=== PATIENT | male | born 1950 | race Caucasian/White ===

== ENCOUNTER 2022-06-02 11:06 | Observation (INO) | payer MEDICARE, SELFPAY ==
[2022-06-02] VITALS (48 sets, daily range): BP systolic 114–163; BP diastolic 68–100; PULSE 69–100; RESP 9–31; TEMP 36.5–37.2; O2SAT 93–100
--- NOTE | 2022-06-02 11:15 | DI.RAD_ITS ---
Exam(s) XR CHEST 2V PA LATERAL EXAM: XR CHEST 2V PA LATERAL CLINICAL HISTORY: R facial weakness TECHNIQUE: 2D digital imaging was performed of the chest. Two images were obtained. PA and lateral views were obtained. COMPARISON: No exams were available for comparison FINDINGS: MEDIASTINUM: Normal. HEART: Normal. PULMONARY VASCULATURE: Normal. LUNGS: Clear. PLEURAL SPACE: No pleural effusion or pneumothorax. Biapical pleural calcification. BONE:Within normal limits for the patient's age. There is a right convex thoracic scoliosis. OTHER FINDINGS:Normal. IMPRESSION: No acute pulmonary findings. DATA REPOSITORY: RADIATION DOSE DELIVERED:
--- NOTE | 2022-06-02 11:15 | DI.CT_ITS ---
Exam(s) CT BRAIN NECK CTA EXAM: CT BRAIN NECK CTA CLINICAL HISTORY: R sided weakness. TECHNIQUE: Imaging Protocol: Axial CT angiography was performed with multi-slice acquisition and mu lti-planar and/or 3D reconstructions. CONTRAST MATERIAL: Intravenous: Omnipaque 350 contrast volume:85 mL COMPARISON: No exams were available for comparison FINDINGS: CT Head W/O and W: Ventricles and Extra axial spaces: Normal in size and morphology for the patient's age. Hemorrhage: None. Cerebral parenchyma: There is no evidence of an acute territorial infarct. There are areas of decrea sed attenuation in the white matter most consistent with small vessel ischemic disease. Midline shift: None. Brainstem/Cerebellum: Normal. Calvarium: Normal. Visualized Paranasal sinuses/Mastoids: There is mild mucosal thickening in the paranasal sinuses. No air-fluid levels are present. Soft Tissues: Unremarkable. Enhancement: Unremarkable. CTA Neck W: Common Carotid: Right: No dissection, occlusion or significant stenosis. Left: No dissection, occlusion or significant stenosis. External Carotid: Right: No occlusion or significant stenosis. Left: No occlusion or significant stenosis. Internal Carotid: Right: No dissection, occlusion or significant stenosis. Left: No dissection, occlusion or significant stenosis. Vertebral Artery: Right: No dissection, occlusion or significant stenosis. Left: No dissection, occlusion or significant stenosis. Lung Apices: Normal. Bones: Within normal limits for the patient's age. Soft Tissues: Normal. Thyroid gland: Unremarkable. CTA Brain W: Internal Carotid Arteries: Mild atherosclerosis. No significant stenosis, aneurysm or occlusion. Anterior Cerebral Arteries: Right: No aneurysm, occlusion or significant stenosis. Left: No aneurysm, occlusion or significant stenosis. Middle Cerebral Arteries: Right: No aneurysm, occlusion or significant stenosis. Left: No aneurysm, occlusion or significant stenosis. Posterior Cerebral Arteries: Right: No aneurysm, occlusion or significant stenosis. Left: No aneurysm, occlusion or significant stenosis. Vertebral Arteries: Right: No aneurysm, occlusion or significant stenosis. Left: No aneurysm, occlusion or significant stenosis. Basilar Artery: No aneurysm, occlusion or significant stenosis. IMPRESSION: 1. No large vessel occlusion or significant stenosis on the CT angiography of the head. 2. No acute intracranial process. 3. No occlusion or significant stenosis on the CT angiography of the neck. RADIATION DOSE DELIVERED: 2,226.17mGy.cm Total DLP DATA REPOSITORY: All CT scans at this facility are submitted to the National Radiology Data Registry (NRDR) Dose Index Registry (DIR) with the [employer] ([employer]). RADIATION OPTIMIZATION: All CT scans at this facility use at least one of these dose optimization te chniques: automated exposure control; mA and/or kV adjustment per patient size (includes targeted exa ms where dose is matched to clinical indication); or iterative reconstruction.
[2022-06-02 11:25] LABS: Abs Immature Grans 0.01 10^3/uL (0.0-0.06); Absolute Lymphocyte Count 1.48 10^3/uL (1.2-3.4); Absolute Monocyte Count 0.53 10^3/uL (0.1-0.8); HGB 12.7 g/dL (13.5-17.5); Immature Grans % 0.3; Lymphocytes % 38.7; MCH 31.8 pg (27.0-33.0); MCHC 34.3 % (32.0-36.0); MCV 93 fL (80-95); Monocytes % 13.9; Neutrophils % 47.1; Platelet Count 119 10^3/uL (130-400); RDW 12.8 % (11.8-14.1); RDW-SD 43.1 fL; WBC 3.82 10^3/uL (4.4-10.8)
[2022-06-02 11:42] LABS: ALT 32 U/L (16-63); AST 24 U/L (15-37); Albumin 3.9 g/dL (3.4-5.0); Alkaline Phosphatase 70 U/L (46-116); Anion Gap 6.4 mmol/L (3-11); BUN 20 mg/dL (7-18); Bilirubin, Total 0.8 mg/dL (0.2-1.0); CO2 30.6 mmol/L (21.0-32.0); CREATININE 0.8 mg/dL (0.70-1.30); Calcium 8.6 mg/dL (8.5-10.1); Chloride 104 mmol/L (98-107); Estimated GFR 94.62 (mL/min/1.73m2); Glucose 91 mg/dL (74-106); Magnesium 1.9 mg/dL (1.8-2.4); Potassium 3.8 mmol/L (3.5-5.1); Sodium 141 mmol/L (136-145); Total Protein 7.5 g/dL (6.4-8.2); Troponin I < 50 ng/L (<or=60)
[2022-06-02 11:58] LABS: Source Nasal/Nares
[2022-06-02] MEDS: Normal Saline Flush 10 ML SYR IVP ×2 (11:58→19:30)
--- NOTE | 2022-06-02 12:01 | DI.VRAD_ITS ---
PROCEDURE INFORMATION: Exam: XR Chest Exam date and time: 06/02/2022 11:50 AM Age: 71 years old Clinical indication: Other: R facial weakness TECHNIQUE: Imaging protocol: Radiologic exam of the chest. Views: 2 views. COMPARISON: CT BRAIN NECK CTA 06/02/2022 11:35 AM FINDINGS: Limitations: Left posterior costophrenic sulcus excluded from image. Lungs: Lungs otherwise clear. Pleural spaces: Mild biapical pleural thickening and pleural calcifications. No pleural effusions. No pneumothorax. Heart/Mediastinum: Unremarkable. No cardiomegaly. Bones/joints: Moderate dextroscoliosis of the lower thoracic spine. Calcified granuloma projecting over the right upper lung zone. IMPRESSION: No evidence of active cardiopulmonary disease. Dictated and Authenticated by: Sarai Pineda MD. Ordering:ROBI Hardin MD
--- NOTE | 2022-06-02 12:04 | ED.GENADUL_ITS ---
Discharge Plan Disposition Patient Disposition: [facility] INPATIENT Condition: Stable Discharge Details Chief Complaint: CVA/TIA Clinical Impression: Weakness on right side of face Primary Care Provider: Unknown,Unknown ED Provider: Wilfred Amador Home Meds and New Rx's Prescriptions: No Action loperamide 2 MG capsule 2 mg PO PRN acetaminophen [Acetaminophen Extra Strength] 500 MG tablet 1,000 mg PO Q6H PRN PRN cholecalciferol (vitamin D3) [Vitamin D3] 1,000 UNIT capsule 1,000 unit PO BID Qty: 100 Rx Instructions: Vitamin D supplement ibuprofen 200 MG tablet 600 mg PO PRN Rx Instructions: Takes 4 tabs PRN cyclobenzaprine 10 MG tablet 5 mg PO TID PRNQty: 30 losartan 50 mg Tablet 50 mg PO BID atorvastatin 20 mg Tablet 20 mg PO DAILY famotidine 20 mg Tablet 20 mg PO QHS Neupogen 300 mcg/0.5 mL Syringe 300 mcg SUBCUT Medical Decision Making This is a 71-year-old gentleman with a past medical history of hyperlipidemia, hypertension, currently being evaluated at [facility] for potential autoimmune disease, presenting to the ER for right sided facial droop. He went to bed last night asymptomatic, upon awakening this morning noticed that his face is asymmetric and that he was having difficulty with pronunciation of his words. feels as though symptoms have improved some. Spares the forehead. Patient also reports right sided headache intermittent for the past week or so. While Draper's palsy is certainly on the differential, she has complained of a headache over the past week, believes symptoms are improving, more concerning for potential TIA-CVA. Plan is to initiate a cardiac work-up, CT head Noncon as well as CTA brain and neck. Last known normal was last night, outside the window for acute intervention. Laboratory values are unremarkable for any obvious emergent process. CT imaging unremarkable for significant vessel disease, stroke, etc. Discussed findings with patient and family. Full dose aspirin given. Given his age and comorbidities, ongoing symptoms, plan is to admit to our facility for observation and likely MRI tomorrow for further evaluation of the symptoms. Patient and family are comfortable with this plan. Case discussed with our hospitalist, Dr. Zamorano, who is agreeable to admission This documentation was generated using [employer] system, please disregard any oddities of phrase or misspellings. Medical Records Medical records reviewed: Yes I reviewed the patient's medical records. Imaging Data Radiologic Study: Attestation: I personally reviewed and interpreted this imaging study as follows: Imaging: X-Ray Radiologist's impression: PROCEDURE INFORMATION: Exam: XR Right Clavicle, Complete Exam date and time: 06/02/2022 10:57 AM Age: 34 years old Clinical indication: Other: Reinjury of recent FX and surgery; Prior surgery; Surgery date: <1 month TECHNIQUE: Imaging protocol: Radiologic exam of the Right clavicle. Complete exam. Views: Any number of views. COMPARISON: XA XR CLAVICLE RT LIMITED 1V 04/25/2022 12:51 PM FINDINGS: Bones/joints: Plate and screw fixation shaft of the right clavicle. No fracture line identified. Soft tissues: Normal. IMPRESSION: Plate and screw fixation shaft of the right clavicle Radiologic Study #2: Attestation: I personally reviewed and interpreted this imaging study as екатерина colungas: Imaging: CT Scan Radiologist's impression: PROCEDURE INFORMATION: Exam: CTA Head With Contrast, Arteriography Exam date and time: 06/02/2022 11:35 AM Age: 71 years old Clinical indication: Stroke-like symptoms; Other: Facial weakness, R sided weakness TECHNIQUE: Imaging protocol: Computed tomographic angiography of the head with contrast. Exam focused on the arteries. 3D rendering (Not supervised by radiologist): MIP and/or 3D reconstructed images were created by the technologist. Radiation optimization: All CT scans at this facility use at least one of these dose optimization techniques: automated exposure control; mA and/or kV adjustment per patient size (includes targeted exams where dose is matched to clinical indication); or iterative reconstruction. Contrast material: OMNIPAQUE 350; Contrast volume: 85 ml; Contrast route: INTRAVENOUS (IV); COMPARISON: No relevant prior studies available. FINDINGS: ANTERIOR CIRCULATION: Right internal carotid artery: Atherosclerosis without significant stenosis. No dissection. No aneurysm. Right middle cerebral artery: Normal. Right anterior cerebral artery: Normal. Left internal carotid artery: Atherosclerosis without significant stenosis. No dissection. No aneurysm. Left middle cerebral artery: Normal. Left anterior cerebral artery: Normal.POSTERIOR CIRCULATION: Right vertebral artery: Normal. Left vertebral artery: Normal. Basilar artery: Normal. Right posterior cerebral artery: Normal. Left posterior cerebral artery: Normal. Veins: Normal opacification of the central dural sinuses and major intracranial veins. Brain: No abnormal brain parenchyma or meningeal enhancement. Normal. Cerebral ventricles: Normal. Orbital cavities: Normal optic globes. Normal retrobulbar fat and other adjacent soft tissues. Normal optic nerves and extra-ocular muscles. Mastoid air cells: Clear. Paranasal sinuses: Clear. Bones/joints: Intact. No suspicious lesions. Soft tissues: Unremarkable. IMPRESSION: Mild carotid atherosclerosis. No large vessel stenosis or occlusion. PROCEDURE INFORMATION: Exam: CTA Neck With Contrast Exam date and time: 06/02/2022 11:35 AM Age: 71 years old Clinical indication: Stroke-like symptoms; Other: Facial weakness, R sided weakness TECHNIQUE: Imaging protocol: Computed tomographic angiography of the neck with contrast. 3D rendering (Not supervised by radiologist): MIP and/or 3D reconstructed images were created by the technologist. Radiation optimization: All CT scans at this [facility] use at least one of these dose optimization techniques: automated exposure control; mA and/or kV adjustment per patient size (includes targeted exams where dose is matched to clinical indication); or iterative reconstruction. Contrast material: OMNIPAQUE 350; Contrast volume: 85 ml; Contrast route: INTRAVENOUS (IV); COMPARISON: No relevant prior studies available. FINDINGS: Right common carotid artery: NormalRight external carotid artery: Normal. Left common carotid artery: Normal. Left internal carotid artery: Normal. Left external carotid artery: Normal. Right vertebral artery: Normal. Left vertebral artery: Normal. Other arteries: Normal. Lymph nodes: No enlarged or otherwise suspicious lymph nodes. Soft tissues: Unremarkable. Bones/joints: No fracture or suspicious lesion. Spine degenerative changes without significant appearing central stenosis. Lungs: Clear. IMPRESSION: Normal neck vessels. REFERENCES: NASCET CRITERIA. The degree of stenosis in the cervical segment of the internal carotid artery is based on NASCET criteria. Normal is no stenosis. Mild is less than 50% stenosis. Moderate is 50- 69% stenosis. Severe is 70% to 99% stenosis. Total occlusion is no detectable patent lumen. Radiologic Study #3: Attestation: I personally reviewed and interpreted this imaging study as follows: Imaging: CT Scan Radiologist's impression: PROCEDURE INFORMATION: Exam: CT Head Without Contrast Exam date and time: 06/02/2022 11:35 AM Age: 71 years old Clinical indication: Stroke-like symptoms; Other: Facial weakness, R sided weakness TECHNIQUE: Imaging protocol: Computed tomography of the head without contrast. Radiation optimization: All CT scans at this facility use at least one of these dose optimization techniques: automated exposure control; mA and/or kV adjustment per patient size (includes targeted exams where dose is matched to clinical indication); or iterative reconstruction. Other technique: STROKE PROTOCOL was implemented. COMPARISON: No relevant prior studies available. FINDINGS: Brain: No mass, intracranial hemorrhage or brain edema. Age appropriate brain volume. No focal encephalomalacia or transcortical defect. No white matter hypodensity. Normal cerebellum and brainstem. Unremarkable sella and pituitary. Cerebral ventricles: Appropriate size with respect to brain volume. Paranasal sinuses: Clear. Mastoid air cells: Clear. Bones/joints: No fracture or suspicious lesion. Soft tissues: Unremarkable. IMPRESSION: No acute intracranial abnormality. Normal brain. ASSESSMENT: ASPECTS ([place] Stroke Program Early CT Score) is 10. Lab Data Lab results reviewed: Yes I reviewed the patient's lab results. Labs: Laboratory Tests Range/Units 06/02/22 06/02/22 06/02/22 11:15 11:15 11:54 WBC (4.4-10.8) 10^3/uL 3.82 L RBC (4.36-5.78) 10^6/uL 4.00 L Hgb (13.5-17.5) g/dL 12.7 L Hct (40.0-50.0) % 37.0 L MCV (80-95) fL 93 MCH (27.0-33.0) pg 31.8 MCHC (32.0-36.0) % 34.3 RDW (11.8-14.1) % 12.8 Plt Count (130-400) 10^3/uL 119 L MPV (8.0-11.0) fL 9.0 Immature Gran % 0.3 Neutrophils % 47.1 Lymphocytes % 38.7 Monocytes % 13.9 Eosinophils % 0.0 Basophils % 0.0 Nucleated RBC % (0.0-0.3) % 0.0 Absolute Neutrophils (1.2-6.7) 10^3/uL 1.80 Absolute Lymphocytes (1.2-3.4) 10^3/uL 1.48 Absolute Monocytes (0.1-0.8) 10^3/uL 0.53 Absolute Eosinophils (0.0-0.7) 10^3/uL 0.00 Absolute Basophils (0.0-0.2) 10^3/uL 0.00 Sodium (136-145) mmol/L 141 Potassium (3.5-5.1) mmol/L 3.8 Chloride (98-107) mmol/L 104 Carbon Dioxide (21.0-32.0) mmol/L 30.6 Anion Gap (3-11) mmol/L 6.4 BUN (7-18) mg/dL 20 H Creatinine (0.70-1.30) mg/dL 0.8 Est GFR (CKD-EPI 2020) (mL/min/1.73m2) 94.62 Glucose (74-106) mg/dL 91 Calcium (8.5-10.1) mg/dL 8.6 Magnesium (1.8-2.4) mg/dL 1.9 Total Bilirubin (0.2-1.0) mg/dL 0.8 AST (15-37) U/L 24 ALT (16-63) U/L 32 Alkaline Phosphatase (46-116) U/L 70 Troponin I (<or=60) ng/L < 50 Total Protein (6.4-8.2) g/dL 7.5 Albumin (3.4-5.0) g/dL 3.9 Urine Color (Yellow) Urine Clarity (Clear) Urine pH (5-8) Ur Specific [place] (1.005-1.025) Urine Protein (Negative) mg/dL Urine Ketones (Negative) mg/dL Urine Blood (Negative) Urine Nitrite (Negative) Urine Bilirubin (Negative) Urine Urobilinogen (Up TO 0.2) EU/dL Ur Leukocyte Esterase (Negative) Urine Glucose (Negative) mg/dL COVID-19 Source Nasal/Nares SARS-CoV-2 (PCR) (Negative) Negative Range/Units 06/02/22 12:50 WBC (4.4-10.8) 10^3/uL RBC (4.36-5.78) 10^6/uL Hgb (13.5-17.5) g/dL Hct (40.0-50.0) % MCV (80-95) fL MCH (27.0-33.0) pg MCHC (32.0-36.0) % RDW (11.8-14.1) % Plt Count (130-400) 10^3/uL MPV (8.0-11.0) fL Immature Gran % Neutrophils % Lymphocytes % Monocytes % Eosinophils % Basophils % Nucleated RBC % (0.0-0.3) % Absolute Neutrophils (1.2-6.7) 10^3/uL Absolute Lymphocytes (1.2-3.4) 10^3/uL Absolute Monocytes (0.1-0.8) 10^3/uL Absolute Eosinophils (0.0-0.7) 10^3/uL Absolute Basophils (0.0-0.2) 10^3/uL Sodium (136-145) mmol/L Potassium (3.5-5.1) mmol/L Chloride (98-107) mmol/L Carbon Dioxide (21.0-32.0) mmol/L Anion Gap (3-11) mmol/L BUN (7-18) mg/dL Creatinine (0.70-1.30) mg/dL Est GFR (CKD-EPI 2020) (mL/min/1.73m2) Glucose (74-106) mg/dL Calcium (8.5-10.1) mg/dL Magnesium (1.8-2.4) mg/dL Total Bilirubin (0.2-1.0) mg/dL AST (15-37) U/L ALT (16-63) U/L Alkaline Phosphatase (46-116) U/L Troponin I (<or=60) ng/L Total Protein (6.4-8.2) g/dL Albumin (3.4-5.0) g/dL Urine Color (Yellow) Yellow Urine Clarity (Clear) Clear Urine pH (5-8) 6.5 Ur Specific [place] (1.005-1.025) 1.010 Urine Protein (Negative) mg/dL Negative Urine Ketones (Negative) mg/dL Negative Urine Blood (Negative) Negative Urine Nitrite (Negative) Negative Urine Bilirubin (Negative) Negative Urine Urobilinogen (Up TO 0.2) EU/dL 0.2 Ur Leukocyte Esterase (Negative) Negative Urine Glucose (Negative) mg/dL Negative COVID-19 Source SARS-CoV-2 (PCR) (Negative) ECG Data Attestation: I personally reviewed and interpreted this ECG (s) as follows: Interpretation: Sinus rhythm, ventricular rate 73, no STEMI. HPI General Mode of arrival: ambulatory . Date/Time Provider Initiated Documentation: 06/02/22 11:09 . Limitations to Documentation: no limitations . Information obtained by: patient and family . HPI Narrative: This is a 71-year-old gentleman with a past medical history of hypertension, hyperlipidemia, GERD, currently being worked up for potential autoimmune disorder, presenting for right sided facial weakness specifically around his mouth and slightly different speech pattern. He went to bed last night asymptomatic and his noticed the symptoms around 9 AM. She does believe that his symptoms are slightly improved when compared to her noticing them at 9 AM. Last known normal time would have been last night. Patient reports being under a great deal of stress over the past couple of months, has had mild right side intermittent headaches, no headache now. Denies recent illness or trauma. Patient reports a mild tremor which she believes have been getting worse over the past couple of months, it may be slightly more noticeable on the right side. Related Data Home Medications Medication Instructions Recorded Confirmed acetaminophen 500 mg tablet 1,000 mg PO Q6H PRN PRN 01/05/13 (Acetaminophen Extra Strength) loperamide 2 mg capsule 2 mg PO PRN 01/05/13 cholecalciferol (vitamin D3) 25 1,000 unit PO BID #100 tab-caps 06/07/14 mcg (1,000 unit) capsule (Vitamin D3) cyclobenzaprine 10 mg tablet 5 mg PO TID PRN #30 tab-caps 09/29/14 ibuprofen 200 mg tablet 600 mg PO PRN 09/29/14 atorvastatin 20 mg tablet 20 mg PO DAILY 06/02/22 06/02/22 famotidine 20 mg tablet 20 mg PO QHS 06/02/22 06/02/22 filgrastim 300 mcg/0.5 mL 300 mcg subcut 06/02/22 injection syringe (Neupogen) losartan 50 mg tablet 50 mg PO BID 06/02/22 06/02/22 Allergies Allergy/AdvReac Type Severity Reaction Status Date / Time No Known Allergies Allergy Unverified 06/02/22 11:15 General Stated Complaint: CVA/TIA DEEPALI: 2 Review of Systems Constitutional Constitutional: Denies fatigue, Denies fever(s), Denies headache(s) and Reports weakness Eyes Eyes: Denies change in vision ENT Ears, Nose, Mouth, and Throat: Denies headache(s) and Denies neck pain Cardiovascular Cardiovascular: Denies chest pain and Denies dyspnea Respiratory Respiratory: Denies dyspnea Gastrointestinal Gastrointestinal: Denies abdominal pain, Denies nausea and Denies vomiting Musculoskeletal Musculoskeletal: Denies back pain, Denies neck pain, Denies numbness and Denies tingling Integumentary/Breasts Skin/Breast: Denies erythema Neurologic Neurologic: Denies headache(s), Denies numbness, Denies tingling and Reports weakness Psychiatric Psychiatric: Reports other (Increased stress) Endocrine Endocrine: Denies fatigue Hematologic/Lymphatic Hematologic/Lymphatic: Denies easy bleeding and Denies easy bruising PFSH All Active Problems (Updated 06/02/22 @ 15:18 by SILVANA May) Weakness on right side of face (Acute) Surgical History Repair of inguinal hernia (~1983) left, done in [place] Tonsillectomy and adenoidectomy (~1955) Family History Mother , cerebral aneurysm at age 67. Cerebral aneurysm Father , renal fairlure at age 101. Renal failure Sister , colon ca at age 59. Diabetes Obesity Sister No problems noted. Sister No problems noted. Brother No problems noted. Other Colon cancer Social History Smoking/Tobacco Use Status: Never Smoking risk assessment performed?: Yes Alcohol Intake: current Alcohol Intake frequency: a few times a month Drug use: Occasionally Substance use type: marijuana Do you feel safe at home: Yes Do you feel safe in your relationship?: Yes Exam Const General: cooperative, healthy appearing, comfortable and no acute distress Orientation: alert, awake and oriented x3 Other: Body wide baseline tremor noted, I do question if is slightly worse in the right arm HENMT Head: normal to inspection, normocephalic and atraumatic General nose exam: external nose normal Face and sinus: other (Subtle droop-weakness right side of the mouth) Mouth: moist mucous membranes Throat: posterior oropharynx normal Eyes General: appearance normal, both eyes and all related structures Conjunctivae: conjunctivae normal Neck Neck: normal visual inspection, full ROM, trachea midline, supple and nontender Resp Effort & Inspection: normal respiratory effort and able to speak in complete sentences Auscultation: clear to auscultation bilaterally Cardio Rate: regular rate Rhythm: regular rhythm GI Palpation: soft, not firm, no guarding and nontender Back/Spine/Pelvis Back: No back tenderness Skin General skin exam: no rashes or lesions noted Neuro General: patient alert, patient awake, patient oriented x3, moves all extremities and no focal motor deficits Cognition: normal cognition Speech: speech normal Gait: normal gait Motor: muscle tone normal throughout (In extremities, face as above) and no pronator drift Sensory Exam: no sensory deficits noted Coordination: [id number] test normal and Does not sway with eyes open Extrem General: normal to inspection, full ROM and capillary refill normal Psych Appearance: grossly normal Mental Status: mental status grossly normal Course Vital Signs Vital signs: Vital Signs Temperature 36.5 C 06/02/22 11:10 Pulse 97 H 06/02/22 11:10 Respiratory Rate 20 06/02/22 11:10 Blood Pressure 137/82 06/02/22 11:10 Pulse Oximetry 98 06/02/22 11:10 Temperature 36.5 C 06/02/22 11:10 Temperature Source Temporal Artery Scan 06/02/22 11:10 Pulse 78 06/02/22 12:01 Pulse 83 06/02/22 12:01 Respiratory Rate 15 06/02/22 11:13 Respiratory Effort 06/02/22 11:28 Respiratory Depth Normal 06/02/22 11:28 Respiratory Pattern Normal 06/02/22 11:28 Blood Pressure 127/80 06/02/22 12:01 Blood Pressure Mean 92 06/02/22 12:01 Blood Pressure Position Sitting 06/02/22 11:10 Pulse Oximetry 96 06/02/22 12:01 Oxygen Delivery Method Room Air 06/02/22 11:10 Oxygen Flow Rate 0 06/02/22 11:10 Pain Level 2 06/02/22 11:10 Lab/Test Results Lab/Test Results: Laboratory Tests Range/Units 06/02/22 06/02/22 06/02/22 11:15 11:15 11:54 WBC (4.4-10.8) 10^3/uL 3.82 L RBC (4.36-5.78) 10^6/uL 4.00 L Hgb (13.5-17.5) g/dL 12.7 L Hct (40.0-50.0) % 37.0 L MCV (80-95) fL 93 MCH (27.0-33.0) pg 31.8 MCHC (32.0-36.0) % 34.3 RDW (11.8-14.1) % 12.8 Plt Count (130-400) 10^3/uL 119 L MPV (8.0-11.0) fL 9.0 Immature Gran % 0.3 Neutrophils % 47.1 Lymphocytes % 38.7 Monocytes % 13.9 Eosinophils % 0.0 Basophils % 0.0 Nucleated RBC % (0.0-0.3) % 0.0 Absolute Neutrophils (1.2-6.7) 10^3/uL 1.80 Absolute Lymphocytes (1.2-3.4) 10^3/uL 1.48 Absolute Monocytes (0.1-0.8) 10^3/uL 0.53 Absolute Eosinophils (0.0-0.7) 10^3/uL 0.00 Absolute Basophils (0.0-0.2) 10^3/uL 0.00 Sodium (136-145) mmol/L 141 Potassium (3.5-5.1) mmol/L 3.8 Chloride (98-107) mmol/L 104 Carbon Dioxide (21.0-32.0) mmol/L 30.6 Anion Gap (3-11) mmol/L 6.4 BUN (7-18) mg/dL 20 H Creatinine (0.70-1.30) mg/dL 0.8 Est GFR (CKD-EPI 2020) (mL/min/1.73m2) 94.62 Glucose (74-106) mg/dL 91 Calcium (8.5-10.1) mg/dL 8.6 Magnesium (1.8-2.4) mg/dL 1.9 Total Bilirubin (0.2-1.0) mg/dL 0.8 AST (15-37) U/L 24 ALT (16-63) U/L 32 Alkaline Phosphatase (46-116) U/L 70 Troponin I (<or=60) ng/L < 50 Total Protein (6.4-8.2) g/dL 7.5 Albumin (3.4-5.0) g/dL 3.9 COVID-19 Source Nasal/Nares PAWSS Have you Been Recently Intoxicated or Drunk Within the Last 30 days?: No Have you Ever Experienced Previous Episodes of Alcohol Withdrawal?: No Have you ever Experienced Withdrawal Seizures?: No Have you ever Experienced Delirium Tremens(DT)s?: No Have you ever undergone Alcohol Rehabilitation Treatment (i.e, inpt ot outpatient treatment programs)?: No Have you ever Experienced Blackouts?: No Have you ever Combined Alcohol with other Downers within the last 90 days?: No Have you ever Combined Alcohol with any other Substance of Abuse during the last 90 days?: No Positive Blood Alcohol level on Presentation? [PCS.BAL]: No Result: 0
--- NOTE | 2022-06-02 12:08 | DI.VRAD_ITS ---
PROCEDURE INFORMATION: Exam: CT Head Without Contrast Exam date and time: 06/02/2022 11:35 AM Age: 71 years old Clinical indication: Stroke-like symptoms; Other: Facial weakness, R sided weakness TECHNIQUE: Imaging protocol: Computed tomography of the head without contrast. Radiation optimization: All CT scans at this facility use at least one of these dose optimization techniques: automated exposure control; mA and/or kV adjustment per patient size (includes targeted exams where dose is matched to clinical indication); or iterative reconstruction. Other technique: STROKE PROTOCOL was implemented. COMPARISON: No relevant prior studies available. FINDINGS: Brain: No mass, intracranial hemorrhage or brain edema. Age appropriate brain volume. No focal encephalomalacia or transcortical defect. No white matter hypodensity. Normal cerebellum and brainstem. Unremarkable sella and pituitary. Cerebral ventricles: Appropriate size with respect to brain volume. Paranasal sinuses: Clear. Mastoid air cells: Clear. Bones/joints: No fracture or suspicious lesion. Soft tissues: Unremarkable. IMPRESSION: No acute intracranial abnormality. Normal brain. ASSESSMENT: ASPECTS ([place] Stroke Program Early CT Score) is 10. Dictated and Authenticated by: Howard Serrano MD. Ordering:ROBI Hardin MD
[2022-06-02 12:38] LABS: COVID-19 PCR Negative (Negative)
[2022-06-02] MEDS: Aspirin 325 MG TAB PO (12:57)
[2022-06-02 13:00] LABS: Bilirubin Negative (Negative); Blood Negative (Negative); Clarity Clear (Clear); Glucose Negative (Negative); Ketones Negative (Negative); Leukocyte Esterase Negative (Negative); Nitrite Negative (Negative); Urobilinogen 0.2 EU/dL (Up TO 0.2); pH 6.5 (5-8)
--- NOTE | 2022-06-02 13:00 | RT.EKG_ITS ---
APPROVED REPORT Exam: Resting ECG Reason for Exam: R facial weakness Patient Location: E HR:73 bpm ECG Measurements Heart Rate 73 AXIS NM 142 P 133 QRSd 103 QRS 96 QT 432 T 78 QTc 477 Conclusion Right and left arm electrode reversal, interpretation assumes no reversal Sinus rhythm...normal P axis, V-rate 60- 99 Right axis deviation...QRS axis ( 91,269) sinus rhythm, normal axis, normal intervals, non ischemic
[2022-06-02 14:33] LABS: Troponin I < 50 ng/L (<or=60)
--- OUTSIDE RECORDS SUMMARY | 2022-06-02 17:15 | XMS_ITS | CCD ---
:1950 Author Care Team Providers Name Role Phone RAJ VILLATORO Attending Physician Unavailable RAJ VILLATORO Rounding (Secondary) Physician Unavailab le Vital Signs Unknown or Not Available. Allergies Allergy Code Allergy Type Reaction Status FLU VACCINE 0 Drug allergy Anaphylaxis Active Procedures Unknown or Not Available. History of Immunizations Unknown or Not Available. Problems Unknown or Not Available. Results Unknown or Not Available. Active Medications Unknown or Not Available. Medications Administered During Visit Unknown or Not Available. Encounters Encounter Diagnosis Diagnosis Code Start Date Incomplete rotator cuff tear or rupture of left shoulder, [id number] 10/16/2021 not specified as traumatic Social History Smoking Status Code Start Date End Date Never smoker [id number] Patient Decision Aids Unknown or Not Available. Discharge Instructions You were admitted to [facility] on 10/16/2021 14:05 with a principal diagnosis of Incomplete rotator cuff tear or ruptu re of left shoulder, not specified as traumatic You were discharged from [facility] on 10/16/2021 00:00 Should you have any questions prior to d ischarge, please contact a member of your healthcare team. If you have left the ho spital and have any questions, please contact your primary care physician. Chief Complaint and Reason For Visit Unknown or Not Available. Function Status Unknown or Not Available. Plan of Care Unknown or Not Available. Referral/Transition of Care Unknown or Not Available.
--- OUTSIDE RECORDS SUMMARY | 2022-06-02 17:16 | XMS_ITS | Continuity of Care Document ---
:1950 Author Organization [facility] Address [address] [place] [address] Phone Support Name Relationship Address Phone NAYA KAPLAN Spouse Unavailable Shilpa Funez Primary Care Provider [facility] [phone] [place] [address] Blu Wilson Attending Provider [facility] [place] [address] Chief Complaint and Reason for Visit Chief Complaint New Patient Allergies, Adverse Reactions, Alerts No known allergies Social History Smoking Status Unknown if ever smoked Additional Data Assigned Sex Male Medications Medication Status Dose Units Route Directions Qty Days Start End Ins tructions Date Date Cholecalciferol Active 10 MCG PO DAILY February (Vitamin D3) 2020 8:34am Loratadine Active 10 MG PO DAILY March 01, 2021 8:35am Vitamins Active 1 CAP PO TWICE A DAY February A,C,W-Pjir-Uxavu (Icaps Areds) 2020 14,:35am mmcq-rh-ggsd capsule Metronidazole Active 1 APPLIC TOP DAILY March 01, 2021 8:35am Acyclovir Active 200 MG PO THREE TIMES Loni A DAY 2020 8:36am Cyclobenzaprine Active 25 MG PO THREE TIMES Loni A DAY 2020 8:37am Acetaminophen Active 325 MG PO ONCE February (Tylenol) 325 mg 2020 8:37am Ibuprofen Active 200 MG PO Q6H March 01, 2021 8:38am Vital Signs Vital Reading Result Reference Range Collection Date/ Time Height 72 [in_i] March 01, 2021 8:23am Weight 79.37 kg March 01, 2021 8:23am BP Systolic 120 mm[Hg] 100-140 March 01, 2021 8:23am BP Diastolic 82 mm[Hg] 50-85 March 01, 2021 8:23am BMI (Body Mass Index) 23.7 kg/m2 March 01, 2021 8:23am Advance Directives Advance Directive Response Recorded Date/Time Does patient have an Advanced Directive? Yes March 01, 2021 7:58am Do we have a copy on file here at [facility]? No J saúl2020 7:58am Pt has a Living Will? Yes March 01, 2021 7: 58am Do we have a copy on file here at [facility]? No J saúl2020 7:58am Pt has a Power of Fish Tender? Yes March 01 7:58am Do we have a copy on file here at [facility]? No J 2020 7:58am Insurance Providers Guarantor FREDY GUILLEN Address [address] [place] [address] Contact Info. Home Phone: Payer Policy Id Coverage Id Subscriber's Subscriber Id Effective E xpiration Name Date Date HOMER [id number] FREDY GUILLEN [id number] LIFE INSURANCE 6 MEDICARE PART [id number] FREDY PATCH [id number] A AND B 60 COVERAGE SELF PAY Self N/A Encounters Encounter Location(s) Arrival/Admit Date Discharge/Depart Date Provider(s) Departed [facility] March 01, 2021 March 01, 2021 Blu Ramires Physician/Prov Medical 7:58am 8:47am DO [facility] Visit n ENT
--- OUTSIDE RECORDS SUMMARY | 2022-06-02 17:16 | XMS_ITS | Continuity of Care Document ---
:1950 Author Organization [facility] Address [address] [place] [address] Care Team Providers Name Role Phone Shilpa Funez Primary Care Physician Blu Wilson Attending Physician Allergies, Adverse Reactions, Alerts No known allergies. Medications Active Medications Medication Dose Units Route Sig Start Date Status Cholecalciferol (Vitamin 10 MCG ORAL DAILY March 01, 2021 Active D3) Loratadine 10 MG ORAL DAILY March 01, 2021 Activ e Vitamins A,C,R-Zorb-Ghbjip 1 CAP ORAL TWICE A DAY J saúl 2020 Active [Icaps Areds] Metronidazole 1 APPLIC TOPICALLY DAILY March 01, 2021 Ac tive Acyclovir 200 MG ORAL THREE TIMES A March 01, 2021 Ac tive DAY PRN Cyclobenzaprine 25 MG ORAL THREE TIMES A March 01 021 Active DAY Acetaminophen [Tylenol] 325 MG ORAL ONCE PRN February 152020 Active Ibuprofen 200 MG ORAL Q6H PRN March 01, 2021 Active Problem List Active Problems Medical Problem Onset Date Status Sleep-disordered breathing Active Chronic ethmoidal sinusitis Active Chronic nasal congestion Active Procedures No known history of procedures. Relevant Diagnostic Tests and/or Laboratory Data No known relevant diagnostic tests, laboratory data, and/or discharge summary. Advance Directives Advance Directive Response Recorded Date/Time Do we have a copy on file here at [facility]? No J saúl 2020 7:58am Does patient have an Advanced Directive? Yes March 01, 2021 7:58am Pt has a Living Will? Yes March 01, 2021 7:58 am Pt has a Power of Veneer Marker? Yes March 01 7:58am Chief Complaint and Reason for Visit Encounter Admit Date Chief Complaint Reason for Visit Departed March 01, 2021 7:58am AMB.NEW Chronic eth moidal sinusitis Physician/Provider Chronic nasal congestion Office Visit Sleep-disordered breathing Hospital Discharge Instructions No known hospital discharge instructions. Hospital Discharge Medications Medication Dose Units Route Sig Qty Days Order Status Instru ctions Date Cholecalciferol 10 MCG ORAL DAILY March 01, Active (Vitamin D3) 2020 Loratadine 10 MG ORAL DAILY March 01 Active 2020 Vitamins 1 CAP ORAL TWICE A March 01, Active A,C,P-Qisg-Cveepd DAY 2020 Metronidazole 1 APPLIC TOPICALLY DAILY March 01, Activ e 2020 Acyclovir 200 MG ORAL THREE March 01, Active TIMES A 2020 DAY PRN Cyclobenzaprine 25 MG ORAL THREE March 01, Active TIMES A 2020 DAY Acetaminophen 325 MG ORAL ONCE PRN March 01, Active 2020 Ibuprofen 200 MG ORAL Q6H PRN March 012020 Encounters Encounter Facility Location Admit/Visit Discharge/Departure Atte nding Date Date Provider Departed [facility] March 01, 2021 March 01, 2021 8:47 am Steve [facility]ician[facility] 7:58am Blu oneill Office Visit Encounter Diagnosis Onset Date Chronic ethmoidal sinusitis Chronic nasal congestion Sleep-disordered breathing Functional Status No known functional status. Immunizations No known immunizations. Plan of Care No Known Plan of Care Information Social History No known social history. Vital Signs Vital Reading Result Reference Range Collection Date/ Time Height 6 ft March 01, 2021 8: 23am Weight 79.379 kg March 01, 2021 8: 23am Blood Pressure Systolic 120 100-140 March 01, 2021 8:23am Blood Pressure Diastolic 82 50-85 February 8:23am Body Mass Index 23.7 March 01, 2021 8: 23am
--- OUTSIDE RECORDS SUMMARY | 2022-06-02 17:16 | XMS_ITS | Continuity of Care Document ---
:1950 Author Organization [facility] Address [address] [place] [address] Support Name Relationship Address Phone Shilpa Funez Primary Care Provider [facility] [address] [facility] [address] [place] [address] Shilpa Funez Referring Provider [facility] [address] [address] Blu Wilson Attending Provider [facility] [address] [place] [address] Allergies, Adverse Reactions, Alerts No allergy information available. Medications No medication information available. Problem List No problem information available. Procedures No known history of procedures. Relevant Diagnostic Tests and/or Laboratory Data No known relevant diagnostic tests, laboratory data, and/or discharge summary. Advance Directives Advance Directive Response Recorded Date/Time Do we have a copy on file here at [facility] No J saúl 2020 7:58am Does patient have an Advanced Directive? Yes March 01, 2021 7:58am Pt has a Living Will? Yes March 01, 2021 7:58 am Pt has a Power of Plate Take Out Worker? Yes March 01 7:58am Chief Complaint and Reason for Visit Encounter Admit Date Chief Complaint Reason for Visit Registered Physician/Provider March 01, 2021 7:58am New Patient Office Visit Hospital Discharge Instructions No known hospital discharge instructions. Encounters Encounter Facility Location Admit/Visit Discharge/Departure Atte nding Date Date Provider Registered [facility] March 01, 2021 Gudelia ortega Physician/[facility] 7:58am Blu oneill Office Visit Functional Status No known functional status. Immunizations No known immunizations. Plan of Care No Known Plan of Care Information Social History No known social history. Vital Signs No known vital signs results.
--- OUTSIDE RECORDS SUMMARY | 2022-06-02 17:16 | XMS_ITS | Continuity of Care Document ---
:1950 Author Organization [facility] Address [address] [place] [address] Support Name Relationship Address Phone Shilpa Funez Primary Care Provider [facility] [address] [facility] [address] [place] [address] Shilpa Funez Referring Provider [facility] [address] [address] Blu Wilson Attending Provider [facility] [phone] [address] [place] [address] Allergies, Adverse Reactions, Alerts No allergy information available. Medications No medication information available. Problem List No problem information available. Procedures No known history of procedures. Relevant Diagnostic Tests and/or Laboratory Data No known relevant diagnostic tests, laboratory data, and/or discharge summary. Advance Directives Advance Directive Response Recorded Date/Time Do we have a copy on file here at [facility]? No J saúl 2020 7:58am Does patient have an Advanced Directive? Yes March 01, 2021 7:58am Pt has a Living Will? Yes March 01, 2021 7:58 am Pt has a Power of Oysterman? Yes March 01 7:58am Chief Complaint and Reason for Visit Encounter Admit Date Chief Complaint Reason for Visit Registered Physician/Provider March 01, 2021 7:58am New Patient Office Visit Hospital Discharge Instructions No known hospital discharge instructions. Encounters Encounter Facility Location Admit/Visit Discharge/Departure Atte nding Date Date Provider Registered [facility] March 01, 2021 Gudelia ortega Physician[facility] 7:58am Blu oneill Office Visit Functional Status No known functional status. Immunizations No known immunizations. Plan of Care No Known Plan of Care Information Social History No known social history. Vital Signs No known vital signs results.
--- NOTE | 2022-06-02 18:11 | HPE_ITS ---
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 R eye takes increased effort to shut and has noted it does not completely shut when he is asleep. Ordered refresh tears to be used frequently / hourly and prn. MRI of head pending. (2) Weakness on right side of face: Status: Acute Assessment and plan: CVA vs Draper's palsy. CT head negative. MRI head pending. A1c, lipids pending. PT/OT to evaluate. If MRI + for CVA, echocardiogram to be obtained. Cont daily aspirin at this time. Cont his low dose atorvastatin at this time; increase to high dose if CVA dxd. (3) Essential hypertension: Status: Acute Assessment and plan: Recently his losartan was increased from 25mg to 50mg. Will give nightly. Certainly is CVA dxd consider lower dose to allow for short period of permissive HTN. (4) Pancytopenia: Status: Acute Assessment and plan: He has been evaluated at [facility] by oncology. No hematologic cancer dx found. Now undergoing eval. by rheumatology. Has received a dose of Rituximab with another scheduled. History of Present Illness History of Present Illness Chief Complaint: Facial droop Narrative: This is a 71 yo male with a PMH of HTN, HLD, Irritable bowel syndrome. He is also currently being evaluated at [facility] by rheumatology for possible autoimmune disorder with Sjogren's being a strong possibility per pt. Upon waking on the morning of presentation he noted facial asymmetry along with difficulty with pronunciation. He also endorsed a right posterior headache for appx 1 week. No focal motor or sensory defits peripherally noted. He denied visual disturbance. CT head unremarkable. ASA 325mg administered. Lab showed a low WBC count of 3.82. Hgb low at 12.7 and low plt count of 119; hematology findings are not new per pt and . Chemistries normal. SBP in the 120-160 range, primarily in the 140's. Review of Systems All systems reviewed & are unremarkable except as noted in HPI and below PFSH All Active Problems (Updated 06/02/22 @ 18:12 by Jason Coon MD) Pancytopenia (Acute) Essential hypertension (Acute) Draper's palsy (Acute) Weakness on right side of face (Acute) Surgical History Repair of inguinal hernia (~1983) left, done in [place] Tonsillectomy and adenoidectomy (~1955) Family History Mother , cerebral aneurysm at age 67. Cerebral aneurysm Father , renal fairlure at age 101. Renal failure Sister , colon ca at age 59. Diabetes Obesity Sister No problems noted. Sister No problems noted. Brother No problems noted. Other Colon cancer Social History Smoking/Tobacco Use Status: Never Smoking risk assessment performed?: Yes Alcohol Intake: current Alcohol Intake frequency: a few times a month Drug use: Occasionally Substance use type: marijuana Do you feel safe at home: Yes Do you feel safe in your relationship?: Yes Meds Allergies and Home Medications Allergies Allergy/AdvReac Type Severity Reaction Status Date / Time No Known Allergies Allergy Unverified 06/02/22 11:15 Home Medications Medication Instructions Recorded Confirmed Type acetaminophen 500 mg tablet 1,000 mg PO Q6H PRN PRN 01/05/13 History (Acetaminophen Extra Strength) loperamide 2 mg capsule 2 mg PO PRN 01/05/13 History cholecalciferol (vitamin D3) 25 1,000 unit PO BID #100 tab-caps 06/07/14 History mcg (1,000 unit) capsule (Vitamin D3) cyclobenzaprine 10 mg tablet 5 mg PO TID PRN #30 tab-caps 09/29/14 History ibuprofen 200 mg tablet 600 mg PO PRN 09/29/14 History atorvastatin 20 mg tablet 20 mg PO DAILY 06/02/22 06/02/22 History famotidine 20 mg tablet 20 mg PO QHS 06/02/22 06/02/22 History filgrastim 300 mcg/0.5 mL 300 mcg subcut 06/02/22 History injection syringe (Neupogen) losartan 50 mg tablet 50 mg PO BID 06/02/22 06/02/22 History Exam Narrative Exam Narrative: Pleant 71 yo male eating dinner slowly. Const General: cooperative and no acute distress Nutritional Appearance: thin Orientation: alert and oriented x3 HENMT Head: normocephalic and atraumatic Ears: hearing grossly normal bilaterally Eyes General: appearance normal, both eyes and all related structures Sclera: sclerae normal Pupils: PERRL EOM: No nystagmus Resp Effort & Inspection: normal respiratory effort Auscultation: clear to auscultation bilaterally Cardio Rate: regular rate Rhythm: regular rhythm Heart Sounds: S1 normal and S2 normal GI Palpation: soft and nontender Neuro General: no focal motor deficits Cranial Nerves: facial strength abnormal (Right side of mouth droop. Right eyelid closure lags.), tongue midline and no nystagmus Cognition: normal cognition Speech: speech normal Motor: no pronator drift and tremor Coordination: [id number]-[id number]-[id number] test normal Results Labs Result diagrams: 06/02/22 11:15 06/02/22 11:15 Labs: Laboratory Results - last 24 hr 06/02/22 06/02/22 06/02/22 11:15 11:15 11:54 WBC 3.82 L RBC 4.00 L Hgb 12.7 L Hct 37.0 L MCV 93 MCH 31.8 MCHC 34.3 RDW 12.8 Plt Count 119 L MPV 9.0 Immature Gran % 0.3 Neutrophils % 47.1 Lymphocytes % 38.7 Monocytes % 13.9 Eosinophils % 0.0 Basophils % 0.0 Nucleated RBC % 0.0 Absolute Neutrophils 1.80 Absolute Lymphocytes 1.48 Absolute Monocytes 0.53 Absolute Eosinophils 0.00 Absolute Basophils 0.00 Sodium 141 Potassium 3.8 Chloride 104 Carbon Dioxide 30.6 Anion Gap 6.4 BUN 20 H Creatinine 0.8 Est GFR (CKD-EPI 2020) 94.62 Glucose 91 Calcium 8.6 Magnesium 1.9 Total Bilirubin 0.8 AST 24 ALT 32 Alkaline Phosphatase 70 Troponin I < 50 Total Protein 7.5 Albumin 3.9 Urine Color Urine Clarity Urine pH Ur Specific [place] Urine Protein Urine Ketones Urine Blood Urine Nitrite Urine Bilirubin Urine Urobilinogen Ur Leukocyte Esterase Urine Glucose COVID-19 Source Nasal/Nares SARS-CoV-2 (PCR) Negative 06/02/22 06/02/22 12:50 14:09 WBC RBC Hgb Hct MCV MCH MCHC RDW Plt Count MPV Immature Gran % Neutrophils % Lymphocytes % Monocytes % Eosinophils % Basophils % Nucleated RBC % Absolute Neutrophils Absolute Lymphocytes Absolute Monocytes Absolute Eosinophils Absolute Basophils Sodium Potassium Chloride Carbon Dioxide Anion Gap BUN Creatinine Est GFR (CKD-EPI 2020) Glucose Calcium Magnesium Total Bilirubin AST ALT Alkaline Phosphatase Troponin I < 50 Total Protein Albumin Urine Color Yellow Urine Clarity Clear Urine pH 6.5 Ur Specific [place] 1.010 Urine Protein Negative Urine Ketones Negative Urine Blood Negative Urine Nitrite Negative Urine Bilirubin Negative Urine Urobilinogen 0.2 Ur Leukocyte Esterase Negative Urine Glucose Negative COVID-19 Source SARS-CoV-2 (PCR) Last Vital Signs Temp 37.2 C 06/02/22 17:14 Pulse 90 06/02/22 17:14 Resp 18 06/02/22 17:14 BP 136/100 H 06/02/22 17:14 Pulse Ox 99 06/02/22 17:14 PAWSS Have you Been Recently Intoxicated or Drunk Within the Last 30 days?: No Have you Ever Experienced Previous Episodes of Alcohol Withdrawal?: No Have you ever Experienced Withdrawal Seizures?: No Have you ever Experienced Delirium Tremens(DT)s?: No Have you ever undergone Alcohol Rehabilitation Treatment (i.e, inpt ot outpatient treatment programs)?: No Have you ever Experienced Blackouts?: No Have you ever Combined Alcohol with other Downers within the last 90 days?: No Have you ever Combined Alcohol with any other Substance of Abuse during the last 90 days?: No Positive Blood Alcohol level on Presentation? [PCS.BAL]: No Result: 0
[2022-06-02] MEDS: HYDROcodone 5/Acetaminophen 325 TAB PO (19:29)
[2022-06-02] MEDS: Cholecalciferol (Vitamin D3) 1,000 UNIT TAB 1000 UNITS PO (19:30)
[2022-06-02] MEDS: Refresh PLUS Eye Drops 0.4ml 1 EACH OU (19:31)
[2022-06-02] MEDS: Acetaminophen 500 MG TAB 1000 MG PO (22:01)
[2022-06-02] MEDS: Famotidine 20 MG TAB PO (22:02)
[2022-06-02] MEDS: Losartan 50 MG TAB PO (22:03)
--- NOTE | 2022-06-03 | DI.MRI_ITS ---
Exam(s) MR BRAIN WO EXAM: MR BRAIN WO CLINICAL HISTORY: facial droop, dysarthria. TECHNIQUE: Multiplanar multisequence MRI of the brain was performed. COMPARISON: CT CT BRAIN NECK CTA from 06/02/2022 FINDINGS: VENTRICLES AND EXTRA AXIAL SPACES: Normal in size and morphology for the patient's age. MIDLINE SHIFT: None. CEREBRAL PARENCHYMA: No focus of restricted diffusion to suggest acute infarct. No space-occupying le yasmine identified. HEMORRHAGE: None. BRAINSTEM/CEREBELLUM: Normal. CALVARIUM: Normal. VISUALIZED PARANASAL SINUSES/MASTOIDS:There is opacification of a few ethmoid air cells but the remai mei visualized paranasal sinuses are clear. CROW OF GARCIA: Normal flow void. PITUITARY GLAND: Unremarkable. OTHER FINDINGS: None. IMPRESSION: No acute intracranial process. No evidence of an acute infarct. DATA REPOSITORY:
[2022-06-03] MEDS: Ibuprofen 600 MG TAB PO ×2 (00:32→09:58)
[2022-06-03] MEDS: HYDROcodone 5/Acetaminophen 325 TAB PO (06:16)
[2022-06-03] MEDS: Refresh PLUS Eye Drops 0.4ml 1 EACH OU (06:17)
[2022-06-03 07:26] VITALS: BP 125/86; PULSE 101; RESP 16; TEMP 36.8; O2SAT 100
[2022-06-03] MEDS: Aspirin 81 MG CHEW PO (08:01)
[2022-06-03] MEDS: Cholecalciferol (Vitamin D3) 1,000 UNIT TAB 1000 UNITS PO (08:01)
[2022-06-03] MEDS: Atorvastatin 20 MG TAB PO (08:01)
[2022-06-03 08:34] LABS: Calculated LDL 71 mg/dL (<100); Cholesterol 134 mg/dL (<200); HDL Cholesterol 53 mg/dL (40-60); Triglyceride 51 mg/dL (<150)
[2022-06-03 08:43] LABS: Hemoglobin A1C 5.6 % (<5.7)
--- NOTE | 2022-06-03 09:47 | W.PM.DS.N ---
Date of service: 06/03/22 Time of Service: 09:47 DS: Diagnosis Discharge Diagnosis (1) Draper's palsy: Status: Acute Asessment and Plan: MRI negative for CVA or other intracranial abnormalities. Clinically consistent with Draper's palsy. Short prednisone taper. (2) Weakness on right side of face: Status: Acute Asessment and Plan: As above. (3) Essential hypertension: Status: Acute Asessment and Plan: Cont losartan 50mg; now nightly. (4) Pancytopenia: Status: Acute Asessment and Plan: Continue with current w/u with rheumatology. Discharge Plan Disposition Patient Disposition: HOME Condition: Improving Discharge Details Reason For Visit: Facial Droop, Dysarthria Admit Date/Time: 06/02/22 15:01 Admit Provider: Jason Coon Attending Provider: Jason Coon Primary Care Provider: Unknown,Unknown Hospital Course Hospital Course: This is a 71 yo male with a PMH of HTN, HLD, Irritable bowel syndrome.? He is also currently being evaluated at [facility] by rheumatology for possible autoimmune disorder with Sjogren's being a strong possibility per pt.? Upon waking on the morning of presentation he noted facial asymmetry along with difficulty with pronunciation.? He also endorsed a right posterior headache for appx 1 week.? No focal motor or sensory defits peripherally noted. He denied visual disturbance. CT head unremarkable.? ASA 325mg administered. Lab showed a low WBC count of 3.82.? Hgb low at 12.7 and low plt count of 119; hematology findings are not new per pt and . Chemistries normal.? SBP in the 120-160 range, primarily in the 140's. See Diagnosis Follow up with PCP in 1-2 weeks. Home Meds and New Rx's Prescriptions: New carboxymethylcellulose sodium [Refresh Plus] 0.5 % Dropperette 1 ea OU PRN PRNQty: 0 0RF prednisone 10 mg tablet See Rx Instructions .ROUTE .COMPLEX Qty: 17 0RF Rx Instructions: 40 mg on 06/04, then 30mg daily for 2 days, 20mg daily for 2 days, 10mg daily for 2 days, 5mg daily for 2 days. zolpidem 5 mg tablet 5 mg PO QHS PRNQty: 7 0RF Continued loperamide 2 MG capsule 2 mg PO PRN acetaminophen [Acetaminophen Extra Strength] 500 MG tablet 1,000 mg PO Q6H PRN PRN cholecalciferol (vitamin D3) [Vitamin D3] 1,000 UNIT capsule 1,000 unit PO BID Qty: 100 Rx Instructions: Vitamin D supplement ibuprofen 200 MG tablet 600 mg PO PRN Rx Instructions: Takes 4 tabs PRN cyclobenzaprine 10 MG tablet 5 mg PO TID PRNQty: 30 losartan 50 mg Tablet 50 mg PO BID atorvastatin 20 mg Tablet 20 mg PO DAILY famotidine 20 mg Tablet 20 mg PO QHS Neupogen 300 mcg/0.5 mL Syringe 300 mcg SUBCUT Discharge Instructions Instructions: Draper Palsy (DC) Stand Alone Forms: Nursing Discharge Form Referrals: Unknown,Unknown [Primary Care Provider] - (Please give you Primary Care doctor a call today to make an appointment in the next 2 Weeks ) Activity:: Activity as Tolerated Equipment/Supplies:: No Equipment Needed Diet:: Resume usual diet Discharge Orders Discharge Orders: Discharge Order (Routine); Ordered 06/03/22 Ordered By: Jason Coon Discharge Data Discharge Date/Time-TO BE ENTERED AT DEPARTURE: 06/03/22 10:41 DS: Summary Time Spent with Patient providing and/or coordinating discharge services: Greater than 30 minutes Status at Discharge Functional status at discharge: independent ambulation Overall status at discharge: patient is not back to baseline Mental Status: mental status grossly normal Speech and Movement: slurred speech (mild) Mood: congruent mood Affect: normal affect Exam Narrative Exam Narrative: Pleant 71 yo male eating dinner slowly. Const General: cooperative and no acute distress Nutritional Appearance: thin Orientation: alert and oriented x3 HENMT Head: normocephalic and atraumatic Ears: hearing grossly normal bilaterally Eyes General: appearance normal, both eyes and all related structures Sclera: sclerae normal Pupils: PERRL EOM: No nystagmus Resp Effort & Inspection: normal respiratory effort Auscultation: clear to auscultation bilaterally Cardio Rate: regular rate Rhythm: regular rhythm Heart Sounds: S1 normal and S2 normal GI Palpation: soft and nontender Neuro General: no focal motor deficits Cranial Nerves: facial strength abnormal (Right side of mouth droop. Right eyelid closure lags.), tongue midline and no nystagmus Cognition: normal cognition Speech: abnormal speech slurred (mild) Motor: no pronator drift and tremor Coordination: [id number] test normal Psych Mental Status: mental status grossly normal Speech and Movement: slurred speech (mild) Mood: congruent mood Affect: normal affect DS: Data Vitals/I&O Vitals and I&O: Vital Signs Temperature 36.8 C 06/03/22 07:26 Temperature Source Tympanic 06/03/22 07:26 Pulse 101 H 06/03/22 07:26 Pulse Rhythm Regular 06/03/22 06:36 Pulse 89 06/02/22 16:50 Respiratory Rate 16 06/03/22 07:26 Respiratory Effort Non-Labored 06/03/22 06:36 Respiratory Depth Normal 06/03/22 06:36 Respiratory Pattern Normal 06/03/22 06:36 Blood Pressure 125/86 06/03/22 07:26 Blood Pressure Mean 94 06/02/22 15:31 Blood Pressure Position Sitting 06/02/22 11:10 Pulse Oximetry 100 06/03/22 07:26 Oxygen Delivery Method Room Air 06/03/22 07:26 Oxygen Flow Rate 0 06/03/22 07:26 Pain Level 2 06/03/22 07:26 Intake & Output 06/02/22 06/02/22 06/03/22 11:59 23:59 11:59 Intake Total 240 / 240 Balance 240 / 240 Weight 71.3 kg 70.2 kg Intake: Oral 240 / 240 Other: Urine Appearance Clear Data Completed and Pending Labs on day of discharge: Labs from last 24 hours 06/03/22 06/03/22 06/02/22 06:16 06:16 14:09 WBC RBC Hgb Hct MCV MCH MCHC RDW Plt Count MPV Immature Gran % Neutrophils % Lymphocytes % Monocytes % Eosinophils % Basophils % Nucleated RBC % Absolute Neutrophils Absolute Lymphocytes Absolute Monocytes Absolute Eosinophils Absolute Basophils Sodium Potassium Chloride Carbon Dioxide Anion Gap BUN Creatinine Est GFR (CKD-EPI 2020) Glucose Hemoglobin A1c 5.6 Calcium Magnesium Total Bilirubin AST ALT Alkaline Phosphatase Troponin I < 50 Total Protein Albumin Triglycerides 51 Total Cholesterol 134 LDL Cholesterol, Calc 71 HDL Cholesterol 53 Urine Color Urine Clarity Urine pH Ur Specific [place] Urine Protein Urine Ketones Urine Blood Urine Nitrite Urine Bilirubin Urine Urobilinogen Ur Leukocyte Esterase Urine Glucose COVID-19 Source SARS-CoV-2 (PCR) 06/02/22 06/02/22 06/02/22 12:50 11:54 11:15 WBC 3.82 L RBC 4.00 L Hgb 12.7 L Hct 37.0 L MCV 93 MCH 31.8 MCHC 34.3 RDW 12.8 Plt Count 119 L MPV 9.0 Immature Gran % 0.3 Neutrophils % 47.1 Lymphocytes % 38.7 Monocytes % 13.9 Eosinophils % 0.0 Basophils % 0.0 Nucleated RBC % 0.0 Absolute Neutrophils 1.80 Absolute Lymphocytes 1.48 Absolute Monocytes 0.53 Absolute Eosinophils 0.00 Absolute Basophils 0.00 Sodium Potassium Chloride Carbon Dioxide Anion Gap BUN Creatinine Est GFR (CKD-EPI 2020) Glucose Hemoglobin A1c Calcium Magnesium Total Bilirubin AST ALT Alkaline Phosphatase Troponin I Total Protein Albumin Triglycerides Total Cholesterol LDL Cholesterol, Calc HDL Cholesterol Urine Color Yellow Urine Clarity Clear Urine pH 6.5 Ur Specific [place] 1.010 Urine Protein Negative Urine Ketones Negative Urine Blood Negative Urine Nitrite Negative Urine Bilirubin Negative Urine Urobilinogen 0.2 Ur Leukocyte Esterase Negative Urine Glucose Negative COVID-19 Source Nasal/Nares SARS-CoV-2 (PCR) Negative 06/02/22 11:15 WBC RBC Hgb Hct MCV MCH MCHC RDW Plt Count MPV Immature Gran % Neutrophils % Lymphocytes % Monocytes % Eosinophils % Basophils % Nucleated RBC % Absolute Neutrophils Absolute Lymphocytes Absolute Monocytes Absolute Eosinophils Absolute Basophils Sodium 141 Potassium 3.8 Chloride 104 Carbon Dioxide 30.6 Anion Gap 6.4 BUN 20 H Creatinine 0.8 Est GFR (CKD-EPI 2020) 94.62 Glucose 91 Hemoglobin A1c Calcium 8.6 Magnesium 1.9 Total Bilirubin 0.8 AST 24 ALT 32 Alkaline Phosphatase 70 Troponin I < 50 Total Protein 7.5 Albumin 3.9 Triglycerides Total Cholesterol LDL Cholesterol, Calc HDL Cholesterol Urine Color Urine Clarity Urine pH Ur Specific [place] Urine Protein Urine Ketones Urine Blood Urine Nitrite Urine Bilirubin Urine Urobilinogen Ur Leukocyte Esterase Urine Glucose COVID-19 Source SARS-CoV-2 (PCR) [facility] All Active Problems Pancytopenia (Acute) Essential hypertension (Acute) Draper's palsy (Acute) Weakness on right side of face (Acute) Surgical History Repair of inguinal hernia (~1983) left, done in [place] Tonsillectomy and adenoidectomy (~1955) Family History Mother , cerebral aneurysm at age 67. Cerebral aneurysm Father , renal fairlure at age 101. Renal failure Sister , colon ca at age 59. Diabetes Obesity Sister No problems noted. Sister No problems noted. Brother No problems noted. Other Colon cancer Social History Smoking/Tobacco Use Status: Never Smoking risk assessment performed?: Yes Alcohol Intake: current Alcohol Intake frequency: a few times a month Drug use: Occasionally Substance use type: marijuana Do you feel safe at home: Yes Do you feel safe in your relationship?: Yes
[2022-06-03] MEDS: predniSONE 20 MG TAB 40 MG PO (10:06)
--- NOTE | 2022-06-03 11:52 | PT.INNT ---
Date of service: 06/03/22 Time of Service: 11:52 PT Notes Visit Reasons: Facial Droop, Dysarthria Patient was discharged to home this morning, independent with all mobility ADLs. No skilled services needed at this time. Thank you for the opportunity to participate in the care of this patient. Ernestina Vera PT, DPT, CLT [facility] [place], [place]
[2022-06-06 10:24] LABS: Lyme Ab w Rflx to Lyme Confirm Positive (Negative)
[2022-06-06 12:29] LABS: Lyme IgG Ab Positive (Negative); Lyme IgM Ab Negative (Negative)
== END 2022-06-03 10:41 | disposition home or self-care (01) ==
LOC: ER 16:09 → MS 17:11
PROVIDERS: Family Medicine; Admitting Provider Family Medicine; Emergency Provider Physician Assistant; Visit Provider Family Medicine
DX: G51.0 Bell's palsy (principal); R47.1 Dysarthria and anarthria; I10 Essential (primary) hypertension; D61.818 Other pancytopenia; Z79.899 Other long term (current) drug therapy; E78.5 Hyperlipidemia, unspecified; R51.9 Headache, unspecified; Z20.822 Contact with and (suspected) exposure to COVID-19; R25.1 Tremor, unspecified; K58.9 Irritable bowel syndrome, unspecified
CPT/HCPCS: 70496; 70498; 80053; 80061; 86617; 87635; 93005; 99285; 70551; 71046; 81003; 83036; 83735; 84484; 85025; 86618; 93010; 99217; 99220; G0378; J7512